=== PATIENT | male | born 2000 | race Caucasian/White ===

== ENCOUNTER 2022-01-27 18:02 | Emergency (ER) ==
[2022-01-27] MEDS ORDERED: Lidocaine 1% w/Epinephrine 1:200K 30 ML VIAL ONE (20:00)
== END 2022-01-27 20:23 | disposition home or self-care (01) ==
LOC: CSHERS 18:02
DX: L02.214 Cutaneous abscess of groin (principal)
CPT/HCPCS: 10060; 87070; 87205